=== PATIENT | male | born 1965 | race African-American/Black ===

== ENCOUNTER 2020-12-07 15:37 | Inpatient (IN) | payer OTHER ==
[2020-12-07 18:11] LABS: VENOUS BASE EXCESS 3.4 mmol/L (-2-2); VENOUS O2 SATURATION 90.2 % (70-80); VENOUS PCO2 46.8 mmHg (38-52); VENOUS PH 7.408 (7.310-7.410)
[2020-12-07 18:13] LABS: BASO % 0.9 % (0-2.0); EOS % 2.9 % (0-4.5); HEMATOCRIT 41.4 % (35.4-49); LYMPH % 29.9 % (8-40); MCH 30.5 pg (25.7-33.7); MCHC 33.8 g/dl (32.0-35.9); MEAN CELL VOLUME 90.2 fl (80-96); MEAN PLT VOLUME 9.4 fl (7.5-11.1); MONO % 9.8 % (3.8-10.2); NEUT % 56.5 % (42.8-82.8); PLATELET COUNT 194 K/MM3 (134-434); RBC 4.59 M/mm3 (4.00-5.60); RDW 14.5 % (11.9-15.9); WHITE BLOOD COUNT 7.5 K/mm3 (4.0-10.0)
[2020-12-07 18:14] LABS: PH,URINE 7.5 (5.0-8.0); URINE APPEARANCE CLEAR; URINE BILIRUBIN NEGATIVE (NEGATIVE); URINE COLOR YELLOW; URINE GLUCOSE (UA) NEGATIVE (NEGATIVE); URINE KETONE NEGATIVE (NEGATIVE); URINE LEUK ESTERASE NEGATIVE (NEGATIVE); URINE NITRITE NEGATIVE (NEGATIVE); URINE PROTEIN NEGATIVE (NEGATIVE)
[2020-12-07 18:24] LABS: INR 1.05 (0.83-1.09); PROTHROMBIN TIME (PATIENT) 12.7 SEC (9.7-13.0)
[2020-12-07 18:33] LABS: CHLORIDE 104 mmol/L (98-107); SODIUM 140 mmol/L (136-145)
[2020-12-07 18:36] LABS: ALBUMIN 3.4 g/dl (3.4-5.0); ANION GAP 7 MMOL/L (8-16); BLOOD UREA NITROGEN 15.3 mg/dL (7-18); CO2 29 mmol/L (21-32); GLUCOSE,RANDOM 95 mg/dL (74-106); MAGNESIUM 2.3 mg/dL (1.8-2.4)
[2020-12-07 18:39] LABS: CREATININE 1.4 mg/dL (0.55-1.3); SGOT/AST 22 U/L (15-37); SGPT/ALT 25 U/L (13-61)
[2020-12-07 18:41] LABS: BILIRUBIN,TOTAL 0.6 mg/dL (0.2-1); TOT PROT 6.9 g/dl (6.4-8.2)
[2020-12-07 18:42] LABS: ALK PHOS 78 U/L (45-117)
[2020-12-07 18:45] LABS: N-TERMINAL BNP 249.1 pg/ml (5-125)
[2020-12-07] MEDS ORDERED: LACTATED RINGERS SOLUTION 1000 ML INFUS.BAG IV ONE (19:11)
[2020-12-07 22:59] LABS: METHADONE, UR NEGATIVE ng/ml (CUTOFF=300); URINE BENZODIAZEPINES NEGATIVE ng/ml (CUTOFF=200)
[2020-12-07 23:00] LABS: OPIATES, URI NEGATIVE ng/ml (CUTOFF=300); PHENCYCLIDINE,URINE NEGATIVE ng/ml (CUTOFF=25); URINE AMPHETAMINES NEGATIVE ng/ml (CUTOFF=500); URINE BARBITURATES NEGATIVE ng/ml (CUTOFF=200)
[2020-12-07 23:06] LABS: COCAINE, UR POSITIVE ng/ml (CUTOFF=300)
[2020-12-08 04:57] VITALS: BMI 20.7
[2020-12-08] MEDS: SODIUM CHLORIDE 0.45% 1,000 ML IV SCH ×2 (05:01→22:43)
[2020-12-08] MEDS: HEPARIN NA (PORCINE) 5,000 UNITS/ML 1ML VIAL SQ SCH ×3 (06:02→22:32)
[2020-12-08 08:20] LABS: EOS % 2.7 % (0-4.5); HEMATOCRIT 41.3 % (35.4-49); HEMOGLOBIN 13.8 GM/dL (11.7-16.9); LYMPH % 33.6 % (8-40); MCH 30.2 pg (25.7-33.7); MCHC 33.4 g/dl (32.0-35.9); MEAN CELL VOLUME 90.6 fl (80-96); MEAN PLT VOLUME 9.3 fl (7.5-11.1); MONO % 9.6 % (3.8-10.2); NEUT % 53.1 % (42.8-82.8); PLATELET COUNT 192 K/MM3 (134-434); RBC 4.56 M/mm3 (4.00-5.60); RDW 14.8 % (11.9-15.9); WHITE BLOOD COUNT 5.1 K/mm3 (4.0-10.0)
[2020-12-08 09:03] LABS: ALBUMIN 3.4 g/dl (3.4-5.0); CALCIUM 8.7 mg/dL (8.5-10.1); MAGNESIUM 2.3 mg/dL (1.8-2.4)
[2020-12-08 09:06] LABS: CREATININE 1.3 mg/dL (0.55-1.3)
[2020-12-08 09:07] LABS: PHOSPHOROUS 3.9 mg/dL (2.5-4.9)
[2020-12-08 09:08] LABS: BILIRUBIN,TOTAL 1.1 mg/dL (0.2-1); TOT PROT 6.8 g/dl (6.4-8.2)
[2020-12-09] MEDS: HEPARIN NA (PORCINE) 5,000 UNITS/ML 1ML VIAL SQ SCH ×3 (06:52→21:15)
[2020-12-09] MEDS: LOSARTAN POTASSIUM 25 MG TABLET PO SCH (09:57)
[2020-12-09] MEDS: SODIUM CHLORIDE 0.45% 1,000 ML IV SCH ×2 (10:00→21:15)
[2020-12-10] MEDS: SODIUM CHLORIDE 0.45% 1,000 ML IV SCH (04:00)
[2020-12-10] MEDS: HEPARIN NA (PORCINE) 5,000 UNITS/ML 1ML VIAL SQ SCH ×3 (05:43→21:49)
[2020-12-10] MEDS: LOSARTAN POTASSIUM 25 MG TABLET PO SCH (09:39)
[2020-12-11] MEDS: SODIUM CHLORIDE 0.45% 1,000 ML IV SCH ×3 (00:18→13:10)
[2020-12-11] MEDS: HEPARIN NA (PORCINE) 5,000 UNITS/ML 1ML VIAL SQ SCH ×3 (05:20→21:08)
[2020-12-11] MEDS: LOSARTAN POTASSIUM 25 MG TABLET PO SCH (09:08)
[2020-12-11] MEDS: POLYETHYLENE GLYCOL 3350 119 GM BTL PO SCH ×2 (12:54→21:08)
[2020-12-12] MEDS: SODIUM CHLORIDE 0.45% 1,000 ML IV SCH (05:57)
[2020-12-12] MEDS: HEPARIN NA (PORCINE) 5,000 UNITS/ML 1ML VIAL SQ SCH ×3 (05:58→21:50)
[2020-12-12 07:16] LABS: BASO % 1.1 % (0-2.0); HEMOGLOBIN 14.6 GM/dL (11.7-16.9); MCHC 33.9 g/dl (32.0-35.9); MEAN CELL VOLUME 91.4 fl (80-96); MEAN PLT VOLUME 9.2 fl (7.5-11.1); NEUT % 49.9 % (42.8-82.8); PLATELET COUNT 209 K/MM3 (134-434); RBC 4.71 M/mm3 (4.00-5.60); RDW 15.6 % (11.9-15.9); WHITE BLOOD COUNT 6.5 K/mm3 (4.0-10.0)
[2020-12-12 07:34] LABS: CHLORIDE 106 mmol/L (98-107); SODIUM 141 mmol/L (136-145)
[2020-12-12 07:40] LABS: CREATININE 1.6 mg/dL (0.55-1.3)
[2020-12-12 07:41] LABS: BILIRUBIN,TOTAL 0.3 mg/dL (0.2-1); GLUCOSE,RANDOM 80 mg/dL (74-106); LDL CHOLESTEROL (ONLY SJRH) 106 mg/dL (5-100)
[2020-12-12 07:42] LABS: ALK PHOS 90 U/L (45-117); CALCIUM 8.9 mg/dL (8.5-10.1)
[2020-12-12 07:43] LABS: ALBUMIN 3.3 g/dl (3.4-5.0); ANION GAP 6 MMOL/L (8-16); BLOOD UREA NITROGEN 24.2 mg/dL (7-18); CO2 29 mmol/L (21-32); HDL CHOLESTEROL 55 mg/dL (40-60)
[2020-12-12 07:44] LABS: CHOLESTEROL 207 mg/dL (50-200); SGOT/AST 50 U/L (15-37); SGPT/ALT 66 U/L (13-61); TRIGLYCERIDES 112 mg/dL (0-150)
[2020-12-12] MEDS: LOSARTAN POTASSIUM 25 MG TABLET PO SCH (10:29)
[2020-12-12] MEDS: POLYETHYLENE GLYCOL 3350 119 GM BTL PO SCH ×2 (10:30→21:51)
[2020-12-13] MEDS: HEPARIN NA (PORCINE) 5,000 UNITS/ML 1ML VIAL SQ SCH ×3 (05:33→21:18)
[2020-12-13] MEDS: LOSARTAN POTASSIUM 25 MG TABLET PO SCH (10:41)
[2020-12-13] MEDS: POLYETHYLENE GLYCOL 3350 119 GM BTL PO SCH ×2 (10:41→21:18)
[2020-12-13] MEDS: hydrALAZINE HCL 10 MG TABLET PO SCH (21:18)
[2020-12-14 00:06] LABS: CHLORIDE 103 mmol/L (98-107); SODIUM 140 mmol/L (136-145)
[2020-12-14 00:08] LABS: CALCIUM 9.3 mg/dL (8.5-10.1)
[2020-12-14 00:09] LABS: ALBUMIN 3.6 g/dl (3.4-5.0); ANION GAP 9 MMOL/L (8-16); BLOOD UREA NITROGEN 19.2 mg/dL (7-18); CO2 28 mmol/L (21-32); GLUCOSE,RANDOM 73 mg/dL (74-106)
[2020-12-14 00:12] LABS: CREATININE 1.2 mg/dL (0.55-1.3); SGOT/AST 66 U/L (15-37); SGPT/ALT 106 U/L (13-61)
[2020-12-14 00:13] LABS: BILIRUBIN,TOTAL 0.5 mg/dL (0.2-1); TOT PROT 7.3 g/dl (6.4-8.2)
[2020-12-14 00:14] LABS: ALK PHOS 72 U/L (45-117)
[2020-12-14] MEDS: HEPARIN NA (PORCINE) 5,000 UNITS/ML 1ML VIAL SQ SCH ×3 (05:16→21:17)
[2020-12-14] MEDS ORDERED: PT OWN MED DRAWER 7, Y5N ONE ×2 (08:48→21:01)
[2020-12-14] MEDS: ISOSORBIDE MONONITRATE 30 MG TAB.SR.24H (FP) PO SCH ×2 (08:53→09:06)
[2020-12-14] MEDS: hydrALAZINE HCL 10 MG TABLET PO SCH ×3 (08:53→21:17)
[2020-12-14] MEDS: LOSARTAN POTASSIUM 25 MG TABLET PO SCH ×2 (08:54→09:06)
[2020-12-14] MEDS: POLYETHYLENE GLYCOL 3350 119 GM BTL PO SCH ×2 (09:06→21:18)
[2020-12-14] MEDS ORDERED: REGADENOSON 0.4 MG/5 ML PRE-FILLED SYRINGE IVPUSH ONE ×2 (09:45→11:00)
[2020-12-15] MEDS: LOSARTAN POTASSIUM 25 MG TABLET PO SCH (11:06)
[2020-12-15] MEDS: POLYETHYLENE GLYCOL 3350 119 GM BTL PO SCH ×2 (11:08→22:47)
[2020-12-15] MEDS ORDERED: CLOPIDOGREL BISULFATE 300 MG TABLET PO ONE (12:30)
[2020-12-15] MEDS: hydrALAZINE HCL 10 MG TABLET PO SCH ×2 (12:33→22:51)
[2020-12-15] MEDS: ISOSORBIDE MONONITRATE 30 MG TAB.SR.24H (FP) PO SCH (12:33)
[2020-12-15] MEDS: CLOPIDOGREL BISULFATE 75 MG TABLET (FP) PO SCH (13:49)
[2020-12-15] MEDS ORDERED: PT OWN MED DRAWER 7, Y5N ONE (21:19)
[2020-12-15] MEDS: ATORVASTATIN CA 20 MG TABLET (FP) PO SCH (22:47)
[2020-12-16] MEDS: POLYETHYLENE GLYCOL 3350 119 GM BTL PO SCH ×2 (10:30→22:07)
[2020-12-16] MEDS: CLOPIDOGREL BISULFATE 75 MG TABLET (FP) PO SCH (10:30)
[2020-12-16] MEDS: LOSARTAN POTASSIUM 25 MG TABLET PO SCH (10:30)
[2020-12-16] MEDS: hydrALAZINE HCL 10 MG TABLET PO SCH ×2 (10:30→22:07)
[2020-12-16] MEDS: ISOSORBIDE MONONITRATE 30 MG TAB.SR.24H (FP) PO SCH (10:30)
[2020-12-16] MEDS ORDERED: PT OWN MED DRAWER 7, Y5N ONE (11:28)
[2020-12-16] MEDS ORDERED: INSULIN (NOVOLOG) ASPART 100 UNITS/ML 10ML VIAL ONE (20:28)
[2020-12-16] MEDS: ATORVASTATIN CA 20 MG TABLET (FP) PO SCH (22:08)
[2020-12-17] MEDS: LOSARTAN POTASSIUM 25 MG TABLET PO SCH (09:17)
[2020-12-17] MEDS: POLYETHYLENE GLYCOL 3350 119 GM BTL PO SCH ×2 (09:17→21:02)
[2020-12-17] MEDS: CLOPIDOGREL BISULFATE 75 MG TABLET (FP) PO SCH (09:17)
[2020-12-17] MEDS: ISOSORBIDE MONONITRATE 30 MG TAB.SR.24H (FP) PO SCH (09:17)
[2020-12-17] MEDS: hydrALAZINE HCL 10 MG TABLET PO SCH ×2 (09:27→21:02)
[2020-12-17] MEDS: ATORVASTATIN CA 20 MG TABLET (FP) PO SCH (21:02)
[2020-12-18] MEDS ORDERED: PT OWN MED DRAWER 7, Y5N ONE ×2 (10:00→10:01)
[2020-12-18] MEDS: ISOSORBIDE MONONITRATE 30 MG TAB.SR.24H (FP) PO SCH (10:03)
[2020-12-18] MEDS: hydrALAZINE HCL 10 MG TABLET PO SCH ×2 (10:03→21:28)
[2020-12-18] MEDS: LOSARTAN POTASSIUM 25 MG TABLET PO SCH (10:03)
[2020-12-18] MEDS: CLOPIDOGREL BISULFATE 75 MG TABLET (FP) PO SCH (10:04)
[2020-12-18] MEDS: POLYETHYLENE GLYCOL 3350 119 GM BTL PO SCH ×2 (10:15→21:28)
[2020-12-18] MEDS: ATORVASTATIN CA 20 MG TABLET (FP) PO SCH (21:28)
[2020-12-19] MEDS: hydrALAZINE HCL 10 MG TABLET PO SCH (09:16)
[2020-12-19] MEDS: ISOSORBIDE MONONITRATE 30 MG TAB.SR.24H (FP) PO SCH (09:16)
[2020-12-19] MEDS: CLOPIDOGREL BISULFATE 75 MG TABLET (FP) PO SCH (09:16)
[2020-12-19] MEDS: LOSARTAN POTASSIUM 25 MG TABLET PO SCH (09:16)
[2020-12-19] MEDS: POLYETHYLENE GLYCOL 3350 119 GM BTL PO SCH (09:21)
[2020-12-19 13:36] VITALS: BP 110/64; PULSE 83; TEMP 98
== END 2020-12-19 15:45 | DRG 190 ==
LOC: JER 15:37 → UNDOADMOB 21:06 → INTOOBSV 21:06 → JERBED 21:06 → J5S 12-08 01:31 → JERBED 12-08 01:31 → J5S 12-08 11:35 → JERBED 12-08 11:35 → OBSVTOIN 12-08 11:44 → J7W 12-08 15:53
PROVIDERS: ADMIT Internal Medicine; ATTEND Internal Medicine
DX: I21.4 Non-ST elevation (NSTEMI) myocardial infarction (principal); G60.8 Other hereditary and idiopathic neuropathies; N17.9 Acute kidney failure, unspecified; I11.0 Hypertensive heart disease with heart failure; I50.22 Chronic systolic (congestive) heart failure; I42.9 Cardiomyopathy, unspecified; E44.0 Moderate protein-calorie malnutrition; E78.5 Hyperlipidemia, unspecified; F14.10 Cocaine abuse, uncomplicated; R29.6 Repeated falls; Z91.14 Patient's other noncompliance with medication regimen; Z68.20 Body mass index [BMI] 20.0-20.9, adult; R27.0 Ataxia, unspecified
CPT/HCPCS: 36415; 70450-TC; 70551-TC; 71045-TC-FY; 73090-TC-LT-FY; 73110-TC-LT-FY; 73130-TC-LT-FY; 76775-TC; 76856-TC; 78452-TC; 80053; 80061; 80307; 81003; 82550; 82553; 82803; 83721; 83735; 83880; 84100; 84443; 84484; 85025; 85610; 85730; 86850; 86900; 86901; 87077; 87086; 93005; 93010; 93017; 93225; 93226; 93306-TC; 93880-TC; 93970-TC; 95860-TC; 97116-GP; 97161-GP; 99285-25; A9502; C9803; G0378; J1644; J2785; U0003; U0005